=== PATIENT | male | born 1970 | race Caucasian/White ===

== ENCOUNTER 2017-09-09 00:56 | Observation (INO) | payer OTHER ==
[~2017-09-09] VITALS: Ht 175.3 cm; Wt 61.5 kg
[2017-09-09 01:19] LABS: HEMATOCRIT 43.5 % (38.0-50.0); HEMOGLOBIN 15.3 G/DL (12.5-16.6); MCH 32.2 PG (29.0-34.0); MCHC 35.2 G/DL (30.0-36.0); MCV 91.6 FL (86-99); PLATELET COUNT 292 K/uL (156-360); RBC DIS.WIDTH-CV 12.9 % (11.8-14.6); RBC DIS.WIDTH-SD 43.5 % (39-53); RED BLOOD COUNT 4.75 M/uL (4.00-5.50); WHITE BLOOD COUNT 13.9 K/uL (4.1-10.2)
[2017-09-09 01:34] LABS: CHLORIDE 106 mEq/L (99-109); POTASSIUM 4.1 mEq/L (3.7-5.4); SODIUM 138 mEq/L (136-147)
[2017-09-09 01:36] LABS: GLUCOSE 76 mg/dL (70-99)
[2017-09-09 01:40] LABS: CREATININE 1.1 mg/dL (0.6-1.3); GFR ESTIMATE (CALCULATED) > 59 mL/min/ (58.99-99999)
[2017-09-09 01:41] LABS: TROP-I INTERPRETATION NEGATIVE; TROPONIN-I < 0.01 ng/mL (0.0-0.30); UREA NITROGEN (BUN) 16 mg/dL (9-23)
[2017-09-09 05:54] VITALS: BP 111/66
[2017-09-09 07:21] VITALS: BP 106/55
[2017-09-09 08:15] LABS: HEMATOCRIT 41.9 % (38.0-50.0); HEMOGLOBIN 14.3 G/DL (12.5-16.6); MCH 31.6 PG (29.0-34.0); MCHC 34.1 G/DL (30.0-36.0); MCV 92.7 FL (86-99); PLATELET COUNT 269 K/uL (156-360); RBC DIS.WIDTH-CV 13.2 % (11.8-14.6); RED BLOOD COUNT 4.52 M/uL (4.00-5.50); WHITE BLOOD COUNT 11.1 K/uL (4.1-10.2)
[2017-09-09 08:47] LABS: HDL CHOLESTEROL 44 MG/DL (Desirable>=40); LDL CHOLESTEROL 67 mg/dL (Desirable<100); NON-HDL CHOLESTEROL 79 mg/dL (Desirable<160); TOTAL CHOLESTEROL 123 mg/dL (Desirable<200); TRIGLYCERIDES 59 MG/DL (Normal: <150)
[2017-09-09 08:57] LABS: TROP-I INTERPRETATION NEGATIVE; TROPONIN-I < 0.01 ng/mL (0.0-0.30)
[2017-09-09 11:22] VITALS: BP 161/70
[2017-09-09 13:58] LABS: TROP-I INTERPRETATION NEGATIVE; TROPONIN-I < 0.01 ng/mL (0.0-0.30)
== END 2017-09-09 18:35 | disposition home or self-care (01) ==
LOC: EME 00:56 → EDOF 04:43 → 5WEST 04:43 → EDOF 04:43 → ENRESERV 04:52 → 5WEST 05:46 → CANRESERV 15:48 → ENRESERV 15:48 → 5WEST 16:30
PROVIDERS: Physician Assistant
PROC: 4A023N7 Measurement of Cardiac Sampling and Pressure, Left Heart, Percutaneous Approach (ICD-10-PCS; principal; 2017-09-09)
PROC: B2151ZZ Fluoroscopy of Left Heart using Low Osmolar Contrast (ICD-10-PCS; principal; 2017-09-09)
PROC: B2111ZZ Fluoroscopy of Multiple Coronary Arteries using Low Osmolar Contrast (ICD-10-PCS; principal; 2017-09-09)
DX: R07.89 Other chest pain (principal); R94.39 Abnormal result of other cardiovascular function study; F17.210 Nicotine dependence, cigarettes, uncomplicated; J44.9 Chronic obstructive pulmonary disease, unspecified; R20.0 Anesthesia of skin; R06.02 Shortness of breath; R61 Generalized hyperhidrosis; R11.0 Nausea; D72.829 Elevated white blood cell count, unspecified; Z79.82 Long term (current) use of aspirin; Z82.49 Family history of ischemic heart disease and other diseases of the circulatory system; Z82.5 Family history of asthma and other chronic lower respiratory diseases; Z80.8 Family history of malignant neoplasm of other organs or systems
CPT/HCPCS: 71020; 80048; 80061; 81003; 84484; 85027; 93005; 93306; 94640; 94760; 99202; 99281; 99285; C1769; C1887; G0378; J1644; J1650; J2250; J3010

== ENCOUNTER 2017-09-26 19:56 | Emergency (ER) | payer OTHER ==
[~2017-09-26] VITALS: Ht 175.3 cm; Wt 63.4 kg
[2017-09-26 21:33] LABS: HEMATOCRIT 38.2 % (38.0-50.0); HEMOGLOBIN 13.5 G/DL (12.5-16.6); MCH 32.3 PG (29.0-34.0); MCHC 35.3 G/DL (30.0-36.0); MCV 91.4 FL (86-99); PLATELET COUNT 235 K/uL (156-360); RBC DIS.WIDTH-CV 12.8 % (11.8-14.6); RBC DIS.WIDTH-SD 42.5 % (39-53); RED BLOOD COUNT 4.18 M/uL (4.00-5.50); WHITE BLOOD COUNT 15.8 K/uL (4.1-10.2)
[2017-09-26 21:42] LABS: CHLORIDE 104 mEq/L (99-109); POTASSIUM 4.4 mEq/L (3.7-5.4); SODIUM 137 mEq/L (136-147)
[2017-09-26 21:44] LABS: GLUCOSE 100 mg/dL (70-99)
[2017-09-26 21:47] LABS: CREATININE 0.9 mg/dL (0.6-1.3); GFR ESTIMATE (CALCULATED) > 59 mL/min/ (58.99-99999)
[2017-09-26 21:48] LABS: UREA NITROGEN (BUN) 11 mg/dL (9-23)
[2017-09-26 23:04] VITALS: BP 118/78
== END 2017-09-26 23:05 | disposition home or self-care (01) ==
LOC: EME 19:56
PROVIDERS: Physician Assistant Medical
DX: B34.9 Viral infection, unspecified (principal); F17.200 Nicotine dependence, unspecified, uncomplicated; K21.9 Gastro-esophageal reflux disease without esophagitis; F41.9 Anxiety disorder, unspecified
CPT/HCPCS: 71046; 80048; 85027; 87502; 94640; 99281; 99283

== ENCOUNTER 2017-10-05 12:53 | Inpatient (IN) | payer OTHER ==
[~2017-10-05] VITALS: Ht 175.3 cm; Wt 59.0 kg
[2017-10-05 14:19] LABS: HEMATOCRIT 34.6 % (38.0-50.0); HEMOGLOBIN 12.1 G/DL (12.5-16.6); MCH 31.9 PG (29.0-34.0); MCV 91.3 FL (86-99); RBC DIS.WIDTH-CV 12.9 % (11.8-14.6); RBC DIS.WIDTH-SD 42.9 % (39-53); RED BLOOD COUNT 3.79 M/uL (4.00-5.50); WHITE BLOOD COUNT 23.1 K/uL (4.1-10.2)
[2017-10-05 14:29] LABS: PLATELET COUNT 421 K/uL (156-360)
[2017-10-05 14:40] LABS: CARBON DIOXIDE (BICARBONATE) 21.9 MEQ/L (20-31)
[2017-10-05 14:47] LABS: ALKALINE PHOSPHATASE 97 IU/L (3-129); ALT (GPT) 13 IU/L (3-49); AST (GOT) 15 IU/L (2-34); CHLORIDE 105 MEQ/L (99-109); CREATININE 0.9 MG/DL (0.6-1.3); GFR ESTIMATE (CALCULATED) > 59 mL/min/ (58.99-99999); GLUCOSE 90 mg/dL (70-99); POTASSIUM 4.4 MEQ/L (3.7-5.4); SODIUM 138 MEQ/L (136-147); TOTAL BILIRUBIN 0.4 MG/DL (0.0-1.0); TOTAL PROTEIN 6.7 G/DL (6.4-8.3); UREA NITROGEN (BUN) 11 mg/dL (9-23)
[2017-10-05] MEDS ORDERED: BUSPAR5 MG PO (16:46)
[2017-10-05] MEDS ORDERED: IBUPROFEN800 MG PO (16:46)
[2017-10-05] MEDS ORDERED: SPIRIVA RESPIMAT4 GM IH (16:46)
[2017-10-05] MEDS ORDERED: TESSALON PERLE100 MG PO (16:46)
[2017-10-05] MEDS ORDERED: BREO ELLIPTA I1 EACH IH (16:47)
[2017-10-05] MEDS ORDERED: NICODERM CQ1 EAC2 TD (16:47)
[2017-10-05] MEDS ORDERED: ERGOCALCIF50000 UNIT PO (16:47)
[2017-10-05] MEDS ORDERED: GUMMIES CHILDR1 EACH PO (16:47)
[2017-10-05] MEDS ORDERED: VENTOLIN HFA18 GM IH (16:47)
[2017-10-05 20:27] VITALS: BP 143/75
[2017-10-06 00:18] VITALS: BP 131/69
[2017-10-06 06:25] LABS: BASOPHIL (%) 0.1 % (0-1); EOSINOPHIL (%) 0 % (0-5); HEMATOCRIT 34.6 % (38.0-50.0); HEMOGLOBIN 11.5 G/DL (12.5-16.6); IMMATURE GRANULOCYTE (%) 1.1 % (0.0-0.7); LYMPHOCYTE (%) 5.2 % (15-42); LYMPHOCYTE COUNT 0.6 K/uL (1.0-2.8); MCH 30.7 PG (29.0-34.0); MCHC 33.2 G/DL (30.0-36.0); MCV 92.5 FL (86-99); MONOCYTE (%) 0.8 % (3-12); MONOCYTE COUNT 0.1 K/uL (0-0.8); NEUTROPHIL (%) 92.8 % (45-76); NEUTROPHIL COUNT 11.5 K/uL (1.8-6.4); PLATELET COUNT 452 K/uL (156-360); RBC DIS.WIDTH-SD 43.8 % (39-53); RED BLOOD COUNT 3.74 M/uL (4.00-5.50); WHITE BLOOD COUNT 12.4 K/uL (4.1-10.2)
[2017-10-06 06:48] LABS: CHLORIDE 106 MEQ/L (99-109); CREATININE 0.9 MG/DL (0.6-1.3); GFR ESTIMATE (CALCULATED) > 59 mL/min/ (58.99-99999); POTASSIUM 4.8 MEQ/L (3.7-5.4); SODIUM 138 MEQ/L (136-147); UREA NITROGEN (BUN) 11 mg/dL (9-23)
[2017-10-06 06:49] LABS: GLUCOSE 144 mg/dL (70-99)
[2017-10-06 08:09] VITALS: BP 124/76
[2017-10-06 16:57] VITALS: BP 128/70
[2017-10-06 23:35] VITALS: BP 155/69
[2017-10-07 07:22] VITALS: BP 136/72
[2017-10-07 09:34] LABS: HEMOGLOBIN 10.4 G/DL (12.5-16.6); MCHC 33.5 G/DL (30.0-36.0); MCV 92.5 FL (86-99); PLATELET COUNT 406 K/uL (156-360); RBC DIS.WIDTH-CV 13.2 % (11.8-14.6); RBC DIS.WIDTH-SD 44.3 % (39-53); RED BLOOD COUNT 3.35 M/uL (4.00-5.50); WHITE BLOOD COUNT 12.6 K/uL (4.1-10.2)
[2017-10-07 09:57] LABS: CHLORIDE 107 MEQ/L (99-109); CREATININE 0.8 MG/DL (0.6-1.3); GFR ESTIMATE (CALCULATED) > 59 mL/min/ (58.99-99999); GLUCOSE 168 mg/dL (70-99); POTASSIUM 4.2 MEQ/L (3.7-5.4); SODIUM 139 MEQ/L (136-147); UREA NITROGEN (BUN) 20 mg/dL (9-23)
[2017-10-07 15:51] VITALS: BP 131/79
[2017-10-07 23:36] VITALS: BP 110/58
[2017-10-08 07:59] VITALS: BP 132/68
[2017-10-08 15:15] VITALS: BP 130/87
[2017-10-09 00:11] VITALS: BP 148/77
[2017-10-09 07:34] LABS: HEMATOCRIT 29.4 % (38.0-50.0); HEMOGLOBIN 9.8 G/DL (12.5-16.6); MCH 30.8 PG (29.0-34.0); MCHC 33.3 G/DL (30.0-36.0); MCV 92.5 FL (86-99); NRBC (%) 0.2 /100 WBC (0-0); PLATELET COUNT 447 K/uL (156-360); RBC DIS.WIDTH-CV 13.2 % (11.8-14.6); RBC DIS.WIDTH-SD 44.9 % (39-53); RED BLOOD COUNT 3.18 M/uL (4.00-5.50); WHITE BLOOD COUNT 11.9 K/uL (4.1-10.2)
[2017-10-09 07:42] VITALS: BP 141/88
[2017-10-09 08:01] LABS: CHLORIDE 108 MEQ/L (99-109); CREATININE 0.8 MG/DL (0.6-1.3); GFR ESTIMATE (CALCULATED) > 59 mL/min/ (58.99-99999); MAGNESIUM 2.1 mg/dl (1.3-2.7); POTASSIUM 4.2 MEQ/L (3.7-5.4); SODIUM 138 MEQ/L (136-147); UREA NITROGEN (BUN) 18 mg/dL (9-23)
[2017-10-09 08:02] LABS: GLUCOSE 109 mg/dL (70-99)
[2017-10-09 15:52] VITALS: BP 138/75
[2017-10-09 15:54] VITALS: BP 138/75
[2017-10-10 00:11] VITALS: BP 136/67
[2017-10-10 05:49] LABS: HEMATOCRIT 33.5 % (38.0-50.0); HEMOGLOBIN 11.3 G/DL (12.5-16.6); MCH 31.5 PG (29.0-34.0); MCHC 33.7 G/DL (30.0-36.0); MCV 93.3 FL (86-99); NRBC (%) 0.2 /100 WBC (0-0); PLATELET COUNT 499 K/uL (156-360); RBC DIS.WIDTH-CV 13.2 % (11.8-14.6); RBC DIS.WIDTH-SD 44.9 % (39-53); RED BLOOD COUNT 3.59 M/uL (4.00-5.50)
[2017-10-10 07:52] VITALS: BP 142/89
[2017-10-10 16:32] VITALS: BP 136/79
[2017-10-10 23:55] VITALS: BP 117/70
[2017-10-11 07:25] VITALS: BP 134/82
[2017-10-11 15:55] VITALS: BP 109/64
[2017-10-11 23:58] VITALS: BP 114/68
[2017-10-12 05:55] LABS: HEMATOCRIT 35.5 % (38.0-50.0); HEMOGLOBIN 11.8 G/DL (12.5-16.6); MCH 30.8 PG (29.0-34.0); MCHC 33.2 G/DL (30.0-36.0); MCV 92.7 FL (86-99); PLATELET COUNT 549 K/uL (156-360); RBC DIS.WIDTH-CV 13.4 % (11.8-14.6); RBC DIS.WIDTH-SD 44.7 % (39-53); RED BLOOD COUNT 3.83 M/uL (4.00-5.50); WHITE BLOOD COUNT 14.8 K/uL (4.1-10.2)
[2017-10-12 06:19] LABS: CHLORIDE 107 MEQ/L (99-109); POTASSIUM 4.1 MEQ/L (3.7-5.4); SODIUM 138 MEQ/L (136-147)
[2017-10-12 06:27] LABS: CREATININE 0.9 MG/DL (0.6-1.3); GFR ESTIMATE (CALCULATED) > 59 mL/min/ (58.99-99999); UREA NITROGEN (BUN) 21 mg/dL (9-23)
[2017-10-12 06:28] LABS: GLUCOSE 76 mg/dL (70-99)
[2017-10-12 07:48] VITALS: BP 119/77
[2017-10-12] MEDS ORDERED: CEFEPIME HCL2 GM IM (08:23)
[2017-10-12] MEDS ORDERED: ACIDOPHILUS LA1 EACH PO (08:23)
[2017-10-12] MEDS ORDERED: PREDNISONE10 MG PO (08:23)
[2017-10-12 12:29] VITALS: BP 137/64
== END 2017-10-12 14:00 | disposition home or self-care (01) | DRG 190 ==
LOC: EME 12:53 → 5SOUTH 18:10 → EDOF 18:10 → ENRESERV 18:12 → 5SOUTH 19:55
PROVIDERS: Hospitalist; Internal Medicine; Nurse Practitioner Family; Physician Assistant Medical
DX: J44.1 Chronic obstructive pulmonary disease with (acute) exacerbation (principal); J18.1 Lobar pneumonia, unspecified organism; J44.0 Chronic obstructive pulmonary disease with (acute) lower respiratory infection; J96.01 Acute respiratory failure with hypoxia; E88.09 Other disorders of plasma-protein metabolism, not elsewhere classified; K21.9 Gastro-esophageal reflux disease without esophagitis; F41.9 Anxiety disorder, unspecified; F17.200 Nicotine dependence, unspecified, uncomplicated; Z71.6 Tobacco abuse counseling; F12.90 Cannabis use, unspecified, uncomplicated; F10.10 Alcohol abuse, uncomplicated; Z87.442 Personal history of urinary calculi; Z82.5 Family history of asthma and other chronic lower respiratory diseases; Z80.1 Family history of malignant neoplasm of trachea, bronchus and lung; Z80.8 Family history of malignant neoplasm of other organs or systems
CPT/HCPCS: 71046; 71275; 80048; 80053; 80202; 82103 90; 82803; 82948; 83735; 85025; 85027; 87040; 87070; 87205; 87449; 87493; 87641; 94640; 94640 76; 94799; 99202; 99281; 99285; J0295; J0456; J0696; J1650; J1885; J2270; J2543; J2930; J3370; J7030; J7050; J7512